=== PATIENT | male | born 1955 | race American Indian/Alaskan Native ===

== ENCOUNTER 2016-07-25 08:02 | Emergency (ER) | payer SELFPAY ==
[2016-07-25] MEDS ORDERED: PERCOCET 5/325 PO ONE (09:49)
[2016-07-25] MEDS ORDERED: TORADOL IM ONE (09:49)
[2016-07-25] MEDS ORDERED: DELTASONE PO ONE (09:50)
[2016-07-25] MEDS ORDERED: FLEXERIL PO ONE (09:50)
[2016-07-25 11:02] VITALS: BP 122/60
--- NOTE | 2016-07-25 11:05 | Emergency Department Report ---
Entered by DARON NASSAR, acting as scribe for RACHEL HERRING PA. ED Back Pain/Injury HPI - General Chief Complaint: Back Pain/Injury Stated Complaint: BACK PAIN Time Seen by Provider: 07/25/16 08:34 Source: patient, family Limitations: No Limitations - History of Present Illness Initial Comments: 61 year old male with a PMHx of back pain presents to the ED c/o of lower back pain that began 1 week ago. Patient rates pain 10/10 in severity, which radiates to his left leg. Denies chest pain, abdominal pain, dysuria, urgency, and frequency. Uses tobacco products daily and consumes EtOH occasionally. MD Complaint: back pain (lower) Onset/Timin -: week(s) Similar Symptoms Previously: Yes (Hx of back pain) Place: home Radiation: left leg Severity: moderate Severity scale (0 -10): 10 Quality: aching Consistency: constant Improves With: immobilization, other (laying flat) Worsens With: movement, walking Context: turning/twisting, other (Hx of back pain) Associated Symptoms: denies: confusion, weakness, chest pain, numbness, difficulty walking, cough, difficulty urinating, incontinence, fever/chills, constipation, headaches, abdominal pain, loss of appetite, malaise, rash, seizure, shortness of breath, syncope, other (fever, dysuria, urgency, and frequency) Treatments Prior to Arrival: other (none) - Related Data Previous Rx's Medication Instructions Recorded Last Taken Type Cyclobenzaprine [Flexeril] 10 mg PO TID PRN #15 tablet 07/25/16 Unknown Rx traMADol [Ultram] 50 mg PO Q6HR PRN #20 tablet 07/25/16 Unknown Rx Allergies Allergy/AdvReac Type Severity Reaction Status Date / Time aspirin Allergy Nausea Verified 07/25/16 08:12 Penicillins Allergy Unknown Verified 07/25/16 08:12 ED Review of Systems Comment: All other systems reviewed and negative Constitutional: denies: fever ENT: denies: ear pain, throat pain Respiratory: no symptoms reported Cardiovascular: denies: chest pain, palpitations, edema, syncope Gastrointestinal: denies: abdominal pain, nausea, vomiting Genitourinary: denies: urgency, dysuria, frequency, hematuria, discharge, testicular pain, testicular mass Musculoskeletal: back pain, arthralgia. denies: joint swelling, myalgia Skin: denies: rash Neurological: denies: headache, weakness, numbness, paresthesias, confusion, abnormal gait, vertigo ED Past Medical Hx - Past Medical History Previous Medical History?: Yes Additional medical history: Back Pain - Surgical History Past Surgical History?: No - Family History Family history: hypertension - Social History Smoking Status: Current Every Day Smoker Substance Use Type: Alcohol - Medications Home Medications: Home Medications Medication Instructions Recorded Confirmed Last Taken Type Cyclobenzaprine [Flexeril] 10 mg PO TID PRN #15 tablet 07/25/16 Unknown Rx traMADol [Ultram] 50 mg PO Q6HR PRN #20 tablet 07/25/16 Unknown Rx ED Physical Exam - General Limitations: No Limitations General appearance: alert, in no apparent distress - Head Head exam: Present: atraumatic, normocephalic - Eye Eye exam: Present: normal appearance, EOMI - ENT ENT exam: Present: normal exam, normal orophraynx, mucous membranes moist, normal external ear exam - Neck Neck exam: Present: normal inspection, full ROM. Absent: tenderness, lymphadenopathy - Respiratory Respiratory exam: Present: normal lung sounds bilaterally. Absent: respiratory distress, wheezes, rales, rhonchi, stridor, chest wall tenderness - Cardiovascular Cardiovascular Exam: Present: regular rate, normal rhythm, normal heart sounds. Absent: bradycardia, tachycardia, systolic murmur, diastolic murmur, rubs, gallop - GI/Abdominal GI/Abdominal exam: Present: soft, normal bowel sounds. Absent: distended, tenderness, guarding, rebound, rigid - Extremities Exam Extremities exam: Present: normal inspection, full ROM, normal capillary refill. Absent: tenderness, pedal edema, joint swelling, calf tenderness - Back Exam Back exam: Present: normal inspection, full ROM. Absent: tenderness, CVA tenderness (R), CVA tenderness (L), muscle spasm, paraspinal tenderness, vertebral tenderness, rash noted - Neurological Exam Neurological exam: Present: alert, oriented X3 - Expanded Neurological Exam Expanded Neurological exam: Absent: innattentive, memory loss-remote event, memory loss- recent event, ataxia, receptive aphasia, expressive aphasia, total aphasia, tremor, protecting the airway Patient oriented to: Present: person, place, time Speech: Present: fluid speech Cranial nerves: EOM's Intact: Normal, Gag Reflex: Normal, Nystagmus: Normal, Facial Sensation: Normal Upper motor neuron: Pronator Drift: Normal Sensory exam: Upper Extremity Light Touch: Normal, Upper Extremity Temperature: Normal, UE 2 Point Discrimination: Normal, Lower Extremity Light Touch: Normal, Lower Extremity Temperature: Normal, LE 2 Point Discrimination: Normal Motor strength exam: RUE: 5, LUE: 5, RLE: 5, LLE: 5 DTR: bicep (R): 2+, bicep (L): 2+, tricep (R): 2+, tricep (L): 2+, knee (R): 2+ , knee (L): 2+, ankle (R): 2+, ankle (L): 2+ Best Eye Response ([place]): (4) open spontaneously Best Motor Response (Peggy): (6) obeys commands Best Verbal Response ([place]): (5) oriented Peggy Total: 15 - Psychiatric Psychiatric exam: Present: normal affect, normal mood - Skin Skin exam: Present: warm, dry, intact. Absent: rash ED Course Vital Signs 07/25/16 08:12 Temperature 97.3 F L Pulse Rate 66 Respiratory 20 Rate Blood Pressure 130/83 O2 Sat by Pulse 100 Oximetry - Reevaluation(s) Reevaluation #1: 07/25/16 10:59 .Patient given Flexeril 10 mg by mouth, Percocet 5/325 mg by mouth, Toradol 60 mg IM and Deltasone 60 mg by mouth in emergency room for back pain 07/25/16 10:59 ED Medical Decision Making - Medical Decision Making ED course: Patient with acute exacerbation of chronic back pain. With lumbar radiculopathy.Patient given Flexeril 10 mg by mouth, Percocet 5/325 mg by mouth , Toradol 60 mg IM and Deltasone 60 mg by mouth in emergency room for back pain which helped pain. I encouraged patient to follow up with orthopedic doctor and his chronic back pain. I told him he can follow-up with [facility] to call to schedule an appointment tomorrow. She was understanding of discharge instruction discharged home in stable condition with prescription for Ultram and Flexeril. ED Disposition Clinical Impression: Acute exacerbation of chronic low back pain, Lumbosacral radiculopathy, Encounter for smoking cessation counseling Disposition: DISCHARGED TO HOME OR SELFCARE Is pt being admited?: No Does the pt Need Aspirin: No Condition: Stable Instructions: Chronic Back Pain (ED), Lumbar Radiculopathy (ED), How to Stop Smoking (ED) Additional Instructions: Please stop smoking F/U with primary care physician at [facility]. follow-up with orthopedic doctor to manage her chronic back pain Prescriptions: Cyclobenzaprine [Flexeril] 10 mg PO TID PRN #15 tablet PRN Reason: Muscle Spasm traMADol [Ultram] 50 mg PO Q6HR PRN #20 tablet PRN Reason: Pain Referrals: PRIMARY CARE,MD [Primary Care Provider] - 3-5 Days Forms: Work/School Release Form(ED) This documentation as recorded by the MADAY camargo JASMINE,accurately reflects the service I personally performed and the decisions made by me,RACHEL HERRING PA.
== END 2016-07-25 11:20 | disposition home or self-care (01) ==
LOC: ED 08:02
DX: M54.17 Radiculopathy, lumbosacral region (principal); G89.29 Other chronic pain; F17.200 Nicotine dependence, unspecified, uncomplicated; Z88.6 Allergy status to analgesic agent; Z88.0 Allergy status to penicillin
CPT/HCPCS: 96372; 99283; J1885; J7512

== ENCOUNTER 2016-07-27 11:58 | Emergency (ER) | payer OTHER ==
[2016-07-27 12:28] VITALS: BP 134/78
--- NOTE | 2016-07-27 12:32 | Emergency Department Report ---
Entered by YUMIKO MOCK, acting as scribe for CHRISTIE TAYLOR NP. Chief Complaint: Back Pain/Injury Stated Complaint: CHRONIC BACK PAIN Time Seen by Provider: 07/27/16 12:25 - HPI History of Present Illness: 61 y/o male presents c/o pain to the lower back, left leg and left hip that started about 1 week ago. [facility] the past week. - ROS Review of Systems: +lower back pain +left leg/hip pain - Exam Vital Signs: Vital Signs 07/27/16 12:22 Temperature 98.4 F Pulse Rate 110 H Respiratory 24 Rate Blood Pressure 134/78 O2 Sat by Pulse 98 Oximetry Physical Exam: PT is bent forward, in a position of comfort low back is not ttp. MSE screening note: Focused history and physical exam performed. Due to findings the following was ordered: ED Disposition for MSE Condition: Stable This documentation as recorded by the scribeEMILI RYAN,accurately reflects the service I personally performed and the decisions made by CALUDIA wilkes TRACY M, NP.
--- NOTE | 2016-07-27 15:45 | Emergency Department Report ---
ED Back Pain/Injury HPI - General Chief Complaint: Back Pain/Injury Stated Complaint: CHRONIC BACK PAIN Time Seen by Provider: 07/27/16 12:25 Source: patient Limitations: No Limitations - History of Present Illness Initial Comments: 61-year-old -[place] male that comes in with complaint of chronic back pain that has flared up recently. Patient ports that he was seen here about 3 days ago and was given tramadol and Flexeril without much resolution of the pain. Patient reports that he was seen at [facility] in the past for back pain. Patient reports that the pain is burning and tingling in his started in his lower back and radiates down his left leg. Patient reports that his hard for him to get comfortable because of the pain. Denies any bowel or urinary symptoms with the back pain. MD Complaint: back pain - Related Data Previous Rx's Medication Instructions Recorded Last Taken Type Cyclobenzaprine [Flexeril] 10 mg PO TID PRN #15 tablet 07/25/16 Unknown Rx traMADol [Ultram] 50 mg PO Q6HR PRN #20 tablet 07/25/16 Unknown Rx Acetaminophen/Codeine [Tylenol 1 tab PO Q6H PRN #12 tab 07/27/16 Unknown Rx /Codeine # 3 tab] Allergies Allergy/AdvReac Type Severity Reaction Status Date / Time aspirin Allergy Nausea Verified 07/25/16 08:12 Penicillins Allergy Unknown Verified 07/25/16 08:12 ED Review of Systems ROS: Stated complaint: CHRONIC BACK PAIN Other details as noted in HPI ED Past Medical Hx - Past Medical History Hx Hypertension: Yes Hx HIV: Yes Additional medical history: Back Pain - Surgical History Past Surgical History?: No - Social History Smoking Status: Current Every Day Smoker Substance Use Type: None - Medications Home Medications: Home Medications Medication Instructions Recorded Confirmed Last Taken Type Cyclobenzaprine [Flexeril] 10 mg PO TID PRN #15 tablet 07/25/16 Unknown Rx traMADol [Ultram] 50 mg PO Q6HR PRN #20 tablet 07/25/16 Unknown Rx Acetaminophen/Codeine [Tylenol 1 tab PO Q6H PRN #12 tab 07/27/16 Unknown Rx /Codeine # 3 tab] ED Physical Exam - General Limitations: No Limitations General appearance: alert, in no apparent distress - Head Head exam: Present: atraumatic, normocephalic - Eye Eye exam: Present: normal appearance, EOMI - ENT ENT exam: Present: mucous membranes moist - Extremities Exam Extremities exam: Present: normal inspection. Absent: pedal edema - Expanded Back Exam Expanded Back exam: Sciatic Notch Tenderness: Left, Right, Positive Straight Leg Raise: Left, Negative Straight Leg Raising: Right - Neurological Exam Neurological exam: Present: alert, oriented X3 - Expanded Neurological Exam Expanded Speech: Present: fluid speech Cranial nerves: EOM's Intact: Normal, Gag Reflex: Normal, Tongue Deviation: Normal Cerebellar function: Finger to Nose: Normal, Heel to Gandhi: Normal Upper motor neuron: Pronator Drift: Normal Sensory exam: Upper Extremity Light Touch: Normal, Upper Extremity Pin Prick: Normal, Upper Extremity Temperature: Normal, UE 2 Point Discrimination: Normal, Lower Extremity Light Touch: Normal, Lower Extremity Pin Prick: Normal, Lower Extremity Temperature: Normal, LE 2 Point Discrimination: Normal Motor strength exam: RUE: 5, LUE: 5, RLE: 5, LLE: 5 Best Eye Response ([place]): (4) open spontaneously Best Motor Response ([place]): (6) obeys commands Best Verbal Response (Peggy): (5) oriented [place] Total: 15 - Psychiatric Psychiatric exam: Present: normal affect, normal mood. Absent: depressed, agitated, anxious - Skin Skin exam: Present: warm, dry, intact ED Course Vital Signs 07/27/16 12:22 Temperature 98.4 F Pulse Rate 110 H Respiratory 24 Rate Blood Pressure 134/78 O2 Sat by Pulse 98 Oximetry ED Medical Decision Making - Medical Decision Making Patient has been evaluated by this provider fast track. Discussed the patient I will give him a Toradol injection. Discussed patient they does have aspirin allergy and he reports that she is because of the nausea. Discussed the patient at this injection or go directly to the muscular area versus being cleared by the Gastro intestinal area. We will order Zofran 4 mg to prevent nausea. Also discussed the patient I'll place him on prednisone 40 mg one tablet by mouth now. Patient verbalized understanding Critical care attestation.: If time is entered above; I have spent that time in minutes in the direct care of this critically ill patient, excluding procedure time. ED Disposition Clinical Impression: Lumbosacral radiculopathy, Acute exacerbation of chronic low back pain Disposition: DISCHARGED TO HOME OR SELFCARE Is pt being admited?: No Does the pt Need Aspirin: No Condition: Stable Instructions: Sciatica (ED), Lumbar Radiculopathy (ED) Additional Instructions: It's very important for you to follow up with the pain management provider as well as an orthopedic for chronic exacerbation of your back pain. Prescriptions: Acetaminophen/Codeine [Tylenol /Codeine # 3 tab] 1 tab PO Q6H PRN #12 tab PRN Reason: pain Referrals: PRIMARY CAREMD [Primary Care Provider] - 3-5 Days [facility] [Provider Group] - 3-5 Days [facility] [Provider Group] - 3-5 Days MANUEL GALLEGOS MD [Staff Physician] - 3-5 Days [facility] [Provider Group] - 3-5 Days
[2016-07-27] MEDS: ZOFRAN ODT PO ONE (16:07)
[2016-07-27] MEDS: DELTASONE PO ONE (16:07)
[2016-07-27] MEDS: TORADOL IM ONE (16:07)
== END 2016-07-27 17:58 | disposition home or self-care (01) ==
LOC: ED 11:58
DX: M54.17 Radiculopathy, lumbosacral region (principal); G89.29 Other chronic pain; Z88.6 Allergy status to analgesic agent; Z88.0 Allergy status to penicillin; F17.200 Nicotine dependence, unspecified, uncomplicated; I10 Essential (primary) hypertension
CPT/HCPCS: 96372; 99282; J1885; J7512; Q0162